=== PATIENT | female | born 1955 | race Caucasian/White ===

== ENCOUNTER 2025-04-09 08:41 | Inpatient (IN) | payer MEDICARE, SELFPAY ==
--- NOTE | 2025-03-14 13:15 | CM ---
Demographics: confirmed
Living situation: Lives alone, two story house
Support Person Post Operatively: friends, but patient does not have anyone to bring her to outpatient PT appointments .
History of
VN: No
SNF: No
Outpatient: VN
Has patient purchased required equipment: yes
PCP: confirmed, active
Pharmacy: [facility]
Post Operative Discharge Plan: [facility] for two weeks. CM updated [facility] Admission RN.
--- NOTE | 2025-03-14 13:49 | VNURNOTE ---
Chart reviewed, rec'ed info that pt will need PT and VN post op. Scheduled for [facility] R TKA 04/09. Referral placed in [facility]. Liaison to follow up post-op.
[2025-03-26 11:23] LABS: Hematocrit 39.3 % (37.0-47.0); Hemoglobin 13.1 g/dL (12.0-16.0); Mean Corp Hgb Conc. 33.3 g/dL (33.0-37.0); Mean Corpuscular Volume 91.0 fL (81.0-99.0); Platelet Count 187 10^3/uL (130-400); Red Cell Dist. Width 13.2 % (11.5-14.5)
[2025-03-26 11:33] LABS: ALT (SGPT) 11 U/L (0-35); AST (SGOT) 17 U/L (14-36); Albumin 3.9 g/dl (3.5-5.0); Alkaline Phosphatase 69 U/L (38-126); Blood Urea Nitrogen 14 mg/dl (7-17); Calcium 8.9 mg/dl (8.4-10.2); Carbon Dioxide 29 mmol/L (22-30); Chloride 105 mmol/L (98-107); Glucose 76 mg/dl (70-99); Potassium 4.2 mmol/L (3.5-5.1); Sodium 139 mmol/L (135-145); Total Protein 6.1 g/dl (6.3-8.2); eGFR > 60.00
[2025-03-26 12:01] LABS: Glycohemoglobin (HgbA1c) 5.0 % (4.0-5.9)
[2025-03-26 14:11] VITALS: BMI 32.3
[2025-03-26 18:05] VITALS: BMI 32.3
[2025-04-09] VITALS (18 sets, daily range): BP systolic 101–139; BP diastolic 54–92; PULSE 55; BMI 32.3
--- NOTE | 2025-04-09 08:57 | W.PN.UPDATE ---
Update Note
Progress Note Update
R knee OA s/p R TKA w/ Dr Hansen 04/09/15
DVT prophylaxis - ASA, b/l venous foot pumps
PAF and SVT - monitor on tele
- Continue BB
- No current OAC
Asthma, mild and intermittent
EDUARD, compliant with CPAP (setting 7)
- Monitor O2
- IS
- Duoneb prn
- Add Decadron to assist w/ lung perfusion
- Resume CPAP HS
GERD with esophageal spasms - continue PPI therapy
IBS with constipation - add MOM HS to bowel regimen of Colace and Senna
- Adequate hydration, early mobility as tolerated, and the minimization of opioids were also discussed ronal-operatively
Peripheral neuropathy
Multilevel degenerative disc disease with radiculopathy
- Resume home Gabapentin and Duloxetine
Balance difficulties with history of falls - on fall precautions
Fibromyalgia - will use Dilaudid prn for mod-severe post-op pain (Tramadol and Oxy reportedly ineffective previously)
- Will add Tylenol, Celebrex, Decadron
- Continue home Gabapentin and Duloxetine
- Monitor pain and adjust meds as indicated
Daily alcohol - 1 cocktail daily reported
- Supplement w/ thiamine, folic acid
- Continue home Gabapentin
- Watch for potential s/sx of withdrawal during admission
HLD
Venous varicosities
Diverticulosis
Status post gastric sleeve 2012
Vertigo
Melisa's thyroiditis
Endometrial cancer, diagnosed late 2023, status post hysterectomy and bilateral salpingo-oophorectomy
Rosacea
PTSD
Insomnia
Right ear tinnitus
Obesity, BMI 32.3
Remote history of tobacco abuse
The patient will need VN/home PT initially upon d/c
[2025-04-09] MEDS: NORMOSOL-R/PLASMALYTE-A 1000 IV ×2 (09:40→17:03)
[2025-04-09] MEDS: TYLENOL 650 MG PO ×4 (09:41→23:04)
[2025-04-09] MEDS: CELEBREX 200 MG PO (09:43)
[2025-04-09] MEDS: ZOFRAN 4 MG IV (13:30)
[2025-04-09] MEDS: DILAUDID 2 MG PO ×2 (15:49→19:37)
--- NOTE | 2025-04-09 16:19 | PTCARENOTE ---
Patient admitted from pacu post right total knee arthroplasty.The patient is alert and oriented.She rates her pain at a 4-5 out of 10.Neurovascular assessment is within normal limits and ongoing.The right knee dressing is intact without
drainage.Vital signs are stable.The patient is in her bed with the call frank in reach.Physical therapy is on the way in to see the patient.
[2025-04-09] MEDS: FOLVITE 0.5 MG PO (17:03)
[2025-04-09] MEDS: VITAMIN B1 100 MG PO (17:04)
[2025-04-09] MEDS: PROTONIX 40 MG PO (17:04)
[2025-04-09] MEDS: NEURONTIN 600 MG PO ×2 (17:04→20:44)
[2025-04-09] MEDS: SYNTHROID PO ×2 (17:04→17:07)
[2025-04-09] MEDS: CYMBALTA DELAYED RELEASE 20 MG PO (17:04)
[2025-04-09] MEDS: ASPIRIN 325 MG PO (17:05)
[2025-04-09] MEDS: CRESTOR 10 MG PO (17:12)
--- NOTE | 2025-04-09 18:02 | RESPNOTE ---
Patient ordered for HS Bipap, machine offered to patient in which she declines ' I barely wear mine at home.' Patient aware if she was to change her mind a machine would be available for use
[2025-04-09] MEDS: ANCEF 5 IV (19:36)
[2025-04-09] MEDS: COLACE 100 MG PO (19:36)
[2025-04-09] MEDS: SENOKOT 17.2 MG PO (19:36)
[2025-04-09] MEDS: DECADRON 4 MG PO (19:36)
[2025-04-09] MEDS: BACTROBAN 2% OINTMENT 1 APPLIC NASAL (20:44)
[2025-04-09] MEDS: TOPROL XL 25 MG PO (20:45)
[2025-04-09] MEDS: REFRESH EYE DROPS (PF) 1 DROPS OPHTH (20:45)
[2025-04-09] MEDS: DILAUDID 0.5 MG IV (22:22)
[2025-04-10 03:00] VITALS: BP 117/61
[2025-04-10] MEDS: TYLENOL 650 MG PO ×3 (03:00→11:39)
[2025-04-10] MEDS: ANCEF 5 IV (03:00)
[2025-04-10] MEDS: SYNTHROID 150 MCG PO (03:12)
[2025-04-10] MEDS: DILAUDID 4 MG PO (05:54)
[2025-04-10 07:15] VITALS: BP 117/59
[2025-04-10] MEDS: VITAMIN B1 100 MG PO (08:12)
[2025-04-10] MEDS: NEURONTIN 600 MG PO (08:12)
[2025-04-10] MEDS: BACTROBAN 2% OINTMENT 1 APPLIC NASAL (08:13)
[2025-04-10] MEDS: CELEBREX 200 MG PO (08:13)
[2025-04-10] MEDS: COLACE 100 MG PO (08:13)
[2025-04-10] MEDS: FOLVITE 0.5 MG PO (08:13)
[2025-04-10] MEDS: ASPIRIN 325 MG PO (08:13)
[2025-04-10] MEDS: DECADRON 4 MG PO (08:13)
[2025-04-10] MEDS: SENOKOT 17.2 MG PO (08:13)
[2025-04-10] MEDS: CYMBALTA DELAYED RELEASE 60 MG PO (08:23)
--- NOTE | 2025-04-10 09:10 | W.PN.ORTHO ---
Today's Communication / Plan
-
Await PT and OT recs.
D/c later today if remaining clinically stable.
Assessment
.
Distal Motor Intact: Yes
Dressing:
TOBI wrap removed. Small areas of old bleeding along incision line.
Assessment:
R knee OA s/p R TKA w/ Dr Hansen 04/09/25
DVT prophylaxis - ASA, b/l venous foot pumps
PAF and SVT - rhythm stable on tele
- Continue BB
- No current OAC
Asthma, mild and intermittent
EDUARD, compliant with CPAP (setting 7)
- O2 stable on RA
- IS
- Duoneb prn
- Added Decadron to assist w/ lung perfusion
- Resumed CPAP HS
GERD with esophageal spasms - continue PPI therapy
IBS with constipation - added MOM HS to bowel regimen of Colace and Senna
- Adequate hydration, early mobility as tolerated, and the minimization of opioids were also discussed ronal-operatively
Peripheral neuropathy
Multilevel degenerative disc disease with radiculopathy
- Resumed home Gabapentin and Duloxetine
Balance difficulties with history of falls - on fall precautions
Fibromyalgia - will use Dilaudid prn for mod-severe post-op pain (Tramadol and Oxy reportedly ineffective previously)
- Did add Tylenol, Celebrex, Decadron
- Continue home Gabapentin and Duloxetine
- Monitor pain and adjust meds as indicated
Daily alcohol - 1 cocktail daily reported
- Supplement w/ thiamine, folic acid
- Continue home Gabapentin
- No s/sx of withdrawal during admission
HLD
Venous varicosities
Diverticulosis
Status post gastric sleeve 2012
Vertigo
Melisa's thyroiditis
Endometrial cancer, diagnosed late 2023, status post hysterectomy and bilateral salpingo-oophorectomy
Rosacea
PTSD
Insomnia
Right ear tinnitus
Obesity, BMI 32.3
Remote history of tobacco abuse
The patient will need VN/home PT initially upon d/c
Plan
.
Surgery / Date: R TKA w/ Dr Hansen 04/09/15
DVT Prophylaxis: Aspirin
Activity:
Out of bed.
PT/OT
Discharge Plan: Home w/ VN
Subjective
.
.:
Patient examined resting in bed.
Reporting 4/10 pain; however, appears comfortable. Was medicated prior to arrival.
Denies any other new significant complaints.
Eager for potential d/c today.
Vital Signs and Labs
.
Vital Signs and Labs:
Lab Results
03/26/25 09:13
03/26/25 09:13
Temp Pulse Resp BP Pulse Ox
97.7 F 55 16 117/59 97
04/10/25 07:15 04/10/25 07:15 04/10/25 07:15 04/10/25 07:15 04/10/25 07:15
Non-invasive Hgb result: 14.4
--- NOTE | 2025-04-10 09:26 | W.DS.TRANS ---
DC Summary - [employer]
-
Discharge Instructions:
Discharge Diagnosis/Procedures R knee OA s/p R TKA w/ Dr Hansen 04/09/25
Diet Regular
Additional Diets Adequate hydration, minimize opioids, and wear
TEDs stockings to prevent low blood pressure/
dizziness.
Activity As tolerated,With Walker
Driving Restrictions Not until seen by your Dr
Bathing Restrictions OK to Shower
Other Services PT,VN
Wound Care Dressing to be removed 1 week post-surgery.
Graciela to be removed at 2 week follow-up with
surgeon's office.
Instructions:
Stand-Alone Forms: Total Hip/Knee Replacement D/C
Changes to Home Medications: Yes
Discharge Medications:
DC Medications w/original date entered in [facility]
albuterol sulfate 90 mcg/actuation aerosol inhaler 2 puff inhalation 6XD PRN asthma 03/22/25
duloxetine 20 mg capsule,delayed release sprinkle 20 mg PO QPM Pain 03/22/25
duloxetine 60 mg capsule,delayed release 60 mg PO DAILY Pain 03/22/25
gabapentin 600 mg tablet 600 mg PO TID NEUROPATHIC PAIN 03/22/25
levothyroxine 150 mcg tablet 150 mcg PO DAILY Thyroid 03/22/25
metoprolol succinate 25 mg tablet,extended release 24 hr 25 mg PO HS Blood Pressure 03/22/25
multivitamin 1 tab PO DAILY Supplement 03/22/25
pantoprazole 40 mg tablet,delayed release 40 mg PO QPM GERD 03/22/25
rosuvastatin 10 mg tablet 10 mg PO MOWEFR High Cholesterol 03/22/25
tirzepatide (weight loss) 12.5 mg/0.5 mL subcutaneous pen injector (Zepbound) 12.5 mg SC WE WEIGHT LOSS 03/22/25
vit C 250 mg-vit E 90 mg-zinc 40 mg-copper 1 az-rorqge-wqshpi capsule (PreserVision AREDS-2) 1 tab PO DAILY Supplement 03/22/25
mupirocin 2 % topical ointment 1 applic intranasal BID #1 tube 03/26/25
celecoxib 200 mg capsule (Celebrex) 200 mg PO DAILY #14 caps 04/09/25
dexamethasone 4 mg tablet 4 mg PO BID Anti-inflammatory #5 tabs 04/09/25
hydromorphone 2 mg tablet (Dilaudid) 2 mg PO Q6H PRN moderate-severe pain #30 tabs 04/09/25
ondansetron HCl 4 mg tablet 4 mg PO Q6H PRN nausea and vomiting #30 tabs 04/09/25
Cbd Cream 1 dose topical DAILYPRN PRN pain #1 applic 04/10/25
acetaminophen 500 mg tablet 1,000 mg (2 x 500 mg) PO Q6H #60 tabs 04/10/25
aspirin 325 mg tablet 325 mg PO DAILY #30 tabs 04/10/25
docusate sodium 100 mg capsule 100 mg PO BID #30 caps 04/10/25
lidocaine 5 % topical patch 2 patch topical DAILY PRN pain #30 ea 04/10/25
magnesium hydroxide 400 mg/5 mL oral suspension (Milk of Magnesia) 30 ml PO HS #355 mL 04/10/25
sennosides 8.6 mg tablet (Lisa-mirza) 17.2 mg (2 x 8.6 mg) PO BID #30 tabs 04/10/25
Home Medication Changes
dexamethasone 4 mg tablet 4 mg PO BID Anti-inflammatory #5 tabs 04/09/25
hydromorphone 2 mg tablet (Dilaudid) 2 mg PO Q6H PRN moderate-severe pain #30 tabs 04/09/25
ondansetron HCl 4 mg tablet 4 mg PO Q6H PRN nausea and vomiting #30 tabs 04/09/25
acetaminophen 500 mg tablet 1,000 mg (2 x 500 mg) PO Q6H #60 tabs 04/10/25
aspirin 325 mg tablet 325 mg PO DAILY #30 tabs 04/10/25
docusate sodium 100 mg capsule 100 mg PO BID #30 caps 04/10/25
lidocaine 5 % topical patch 2 patch topical DAILY PRN pain #30 ea 04/10/25
magnesium hydroxide 400 mg/5 mL oral suspension (Milk of Magnesia) 30 ml PO HS #355 mL 04/10/25
sennosides 8.6 mg tablet (Lisa-mirza) 17.2 mg (2 x 8.6 mg) PO BID #30 tabs 04/10/25
Pending Results: No
[2025-04-10 10:28] VITALS: BP 116/61; PULSE 67
--- NOTE | 2025-04-10 10:29 | CM ---
CM reviewed medical records. Plan for discharge to home with [facility].
PLAN: home with [facility].
--- NOTE | 2025-04-10 10:56 | VNURNOTE ---
Home Health Liaison met with patient at bedside to discuss [facility] nurse/therapy, visits, schedule and homebound status. Patient is agreeable and understands that visits at home will be 2-3 x per week to assess and teach medical management. Patient
is aware that [facility] will contact them for start of care within a few days after discharge from .
[facility] referral accepted in [facility].
[2025-04-10 11:30] VITALS: BP 126/67
[2025-04-10 11:34] VITALS: BP 116/61; PULSE 67
[2025-04-10] MEDS: FLUZONE HIGH-DOSE 2025-26 0.5 ML IM (11:40)
[2025-04-10] MEDS: DILAUDID 2 MG PO (11:50)
== END 2025-04-10 13:37 | disposition home health service (06) | DRG 470 ==
LOC: 2 SOUTH 08:41
PROVIDERS: ADMITTING PHYSICIAN Specialist; FAMILY PHYSICIAN Internal Medicine; REFERRING PHYSICIAN Internal Medicine Cardiovascular Disease
PROC: 0SRC0J9 Replacement of Right Knee Joint with Synthetic Substitute, Cemented, Open Approach (ICD-10-PCS; 2025-04-09)
PROC: 3E02340 Introduction of Influenza Vaccine into Muscle, Percutaneous Approach (ICD-10-PCS; 2025-04-10)
DX: M17.11 Unilateral primary osteoarthritis, right knee (principal); I47.10 Supraventricular tachycardia, unspecified; E78.5 Hyperlipidemia, unspecified; I48.0 Paroxysmal atrial fibrillation; J45.909 Unspecified asthma, uncomplicated; G47.33 Obstructive sleep apnea (adult) (pediatric); K21.9 Gastro-esophageal reflux disease without esophagitis; K22.4 Dyskinesia of esophagus; K57.30 Diverticulosis of large intestine without perforation or abscess without bleeding; K58.1 Irritable bowel syndrome with constipation; G62.9 Polyneuropathy, unspecified; N84.0 Polyp of corpus uteri; K59.09 Other constipation; M79.7 Fibromyalgia; E06.3 Autoimmune thyroiditis; L71.9 Rosacea, unspecified; R73.01 Impaired fasting glucose; R68.89 Other general symptoms and signs; F43.10 Post-traumatic stress disorder, unspecified; G47.00 Insomnia, unspecified; J45.20 Mild intermittent asthma, uncomplicated; H93.11 Tinnitus, right ear; E66.9 Obesity, unspecified; Z98.84 Bariatric surgery status; Z91.81 History of falling; Z68.35 Body mass index [BMI] 35.0-35.9, adult; Z87.891 Personal history of nicotine dependence; Z59.82 Transportation insecurity; Z79.1 Long term (current) use of non-steroidal anti-inflammatories (NSAID); Z79.51 Long term (current) use of inhaled steroids; Z85.89 Personal history of malignant neoplasm of other organs and systems; Z90.710 Acquired absence of both cervix and uterus; Z90.722 Acquired absence of ovaries, bilateral; Z79.890 Hormone replacement therapy; Z79.85 Long-term (current) use of injectable non-insulin antidiabetic drugs; Z90.49 Acquired absence of other specified parts of digestive tract; Z23 Encounter for immunization; Z86.16 Personal history of COVID-19
CPT/HCPCS: 73560; 80053; 83036; 85027; 87070; 90662; 97110; 97116; 97162; 97166; 97535; C1713; C1776; G0008